=== PATIENT | female | born 2000 | race African-American/Black ===

== ENCOUNTER 2021-05-29 11:42 | Emergency (ER) | payer SELFPAY ==
[~2021-05-29] VITALS: Ht 152.4 cm; Wt 52.9 kg
[2021-05-29 12:00] VITALS: BP 131/74
[2021-05-29] MEDS ORDERED: IV NORMAL SALINE 1,000ML 1,000 ML IV ONE (12:00)
--- NOTE | 2021-05-29 12:00 | PHYS DOC ---
General Adult EDM: Chief Complaint: SEIZURE HPI: HPI: 21-year-old female presents via EMS after seizure at home. The patient has no official diagnosis of seizure disorder. She tells me that she was standing outside her house when she fell over. She does not remember what happened until later when EMS was there. He told EMS that the patient appeared to be having a seizure on the ground. She was postictal at the scene and when she first arrived in the ED. Patient denies any pain at this time. She states that the last time she had an episode like this was a couple years ago in high school. They told her she was just dehydrated. Patient is on no daily medications. She denies smoking, vaping, alcohol, or drug use. Denies . Review of Systems: Review of Systems: Constitutional: Denies fever or chills Eyes: Denies change in visual acuity HENT: Denies nasal congestion or sore throat Respiratory: Denies cough or shortness of breath Cardiovascular: Denies chest pain or edema GI: Denies abdominal pain, nausea, vomiting, bloody stools or diarrhea : Denies dysuria Musculoskeletal: Denies back pain or joint pain Integument: Denies rash Neurologic: Seizure. Denies headache, focal weakness or sensory changes Endocrine: Denies polyuria or polydipsia Lymphatic: Denies swollen glands Psychiatric: Denies depression or anxiety Current Medications: Current Meds: Current Medications Medications (Trade) Dose Ordered Sig/Ruma Start Time Stop Time Status Last Admin Dose Admin Levetiracetam 1000 mg/Sodium Chloride 100 ml @ 400 mls/hr 1X ONCE 05/29/21 12:00 05/29/21 12:14 Sodium Chloride 1,000 ml @ 1,000 mls/hr 1X ONCE 05/29/21 12:00 05/29/21 12:59 Allergies: Allergies: Allergies Coded Allergies Type Severity Reaction Last Updated Verified Unable to Assess 05/29/21 No Physical Exam: PE: Constitutional: Well developed, well nourished, no acute distress, non-toxic appearance. [] HENT: Normocephalic, atraumatic, bilateral external ears normal, oropharynx dry, no oral exudates, nose normal. [] Eyes: PERRLA, EOMI, conjunctiva normal, no discharge. [] Neck: Normal range of motion, no tenderness, supple, no stridor. [] Cardiovascular: Heart rate regular rhythm, no murmur [] Lungs & Thorax: Bilateral breath sounds clear to auscultation [] Abdomen: Bowel sounds normal, soft, no tenderness, no masses, no pulsatile masses. [] Skin: Warm, dry, no erythema, no rash. [] Back: No tenderness, no CVA tenderness. [] Extremities: No tenderness, no cyanosis, no clubbing, ROM intact, no edema. [] Neurologic: Alert and oriented X 3, normal motor function, normal sensory function, no focal deficits noted. [] Psychologic: Affect normal, judgement normal, mood normal. [] EKG: EKG: Sinus rhythm, rate 91, normal axis, no ST elevation or depression. [] Radiology/Procedures: Radiology/Procedures: [] Impressions: EXAM: CT head without contrast INDICATION: New onset seizure COMPARISON: None TECHNIQUE: Axial CT imaging through the head without intravenous contrast. Sagittal and coronal reformats were obtained. One or more of the following individualized dose reduction techniques were utilized for this examination: 1. Automated exposure control 2. Adjustment of the mA and/or kV according to patient size 3. Use of iterative reconstruction technique. FINDINGS: The ventricles and sulci are normal. Hicks-white matter differentiation is maintained. There is no intracranial hemorrhage, acute infarct, or mass lesion. The skull and scalp are intact. Paranasal sinuses and mastoid air cells are clear. Globes and orbits are intact. IMPRESSION: No acute intracranial abnormality. Electronically signed by: Linda Davis MD (05/29/2021 12:52 PM) [id number] DICTATED AND SIGNED BY: LINDA DAVIS MD DATE: 05/29/21 1251 CC: PORSCHE PALOMARES DO; PCP,NO ~ Exam Date: 05/29/2021 12:34 PM XR CHEST 1V Indication: Reason: seizure, SYNCOPE, "TIRED" / Spl. Instructions: / History: . FINDINGS/ IMPRESSION: The cardiac silhouette and pulmonary vasculature are within normal limits. There is no focal consolidation, pleural effusion or pneumothorax. The visualized osseous structures are intact. Electronically signed by: Micha Cao MD (05/29/2021 12:51 PM) [id number] DICTATED AND SIGNED BY: MICHA CAO MD DATE: 05/29/21 1251 CC: PORSCHE PALOMARES DO; PCP,NO ~ Heart Score: C/O Chest Pain: N/A Risk Factors: Risk Factors: DM, Current or recent (<one month) smoker, HTN, HLP, family history of CAD, obesity. Risk Scores: Score 0 - 3: 2.5% MACE over next 6 weeks - Discharge Home Score 4 - 6: 20.3% MACE over next 6 weeks - Admit for Clinical Observation Score 7 - 10: 72.7% MACE over next 6 weeks - Early Invasive Strategies Course & Med Decision Making: Course & Med Decision Making Pertinent Labs and Imaging studies reviewed. (See chart for details) The patient did appear postictal on arrival. She had some difficulty answering questions but this improved after several minutes. Patient's labs are unremarkable. Her head CT and chest x-ray are unremarkable. Her EKG is ne gative for acute findings. I did give the patient a liter normal saline and cover her with a gram of Keppra. I will not keep her on this medication as she has no official diagnosis of seizure. Her lactic acid was normal. I have given her a referral for neurology. She is stable for discharge at this time. [] Dragon Disclaimer: Dragon Disclaimer: This electronic medical record was generated, in whole or in part, using a voice recognition dictation system. Departure Departure: Impression: Primary Impression: Seizure-like activity Disposition: 01 HOME / SELF CARE / HOMELESS Condition: STABLE Referrals: PCP,NO (PCP) Patient Instructions: Seizure, Adult, [id number] Additional Instructions: Please make an appointment to follow-up with neurology. You can call Dr. Goff to make an appointment at: [phone]. PORSCHE PALOMARES DO May 29, 2021 11:59
[2021-05-29 12:14] LABS: BASO # 0.1 x10^3/uL (0.0-0.2); BASO % 1 % (0-3); EOS # 0.1 x10^3/uL (0.0-0.7); EOS % 1 % (0-3); HEMATOCRIT 35.2 % (36.0-47.0); HEMOGLOBIN 11.7 g/dL (12.0-15.5); LYMPH # 1.8 x10^3/uL (1.0-4.8); LYMPH % 26 % (24-48); MEAN CORPUSCULAR HEMOGLOBIN 29 pg (25-35); MEAN CORPUSCULAR HGB CONC 33 g/dL (31-37); MEAN CORPUSCULAR VOLUME 87 fL (79-100); MONO # 0.5 x10^3/uL (0.0-1.1); MONO % 7 % (0-9); NEUT # 4.4 x10^3uL (1.8-7.7); NEUT % 64 % (31-73); PLATELET COUNT 215 x10^3/uL (140-400); RED BLOOD COUNT 4.03 x10^6/uL (3.50-5.40); RED CELL DISTRIBUTION WIDTH 13.4 % (11.5-14.5); WHITE BLOOD COUNT 6.8 x10^3/uL (4.0-11.0)
[2021-05-29 12:17] LABS: CALCIUM 9.1 mg/dL (8.5-10.1); CREATININE 0.7 mg/dL (0.6-1.0); GFR 129.1; POTASSIUM 3.6 mmol/L (3.5-5.1)
[2021-05-29 12:23] LABS: ALBUMIN 3.5 g/dL (3.4-5.0); ALBUMIN/GLOBULIN RATIO 1.1 (1.0-1.7); TOTAL BILIRUBIN 0.8 mg/dL (0.2-1.0); TOTAL PROTEIN 6.8 g/dL (6.4-8.2)
--- NOTE | 2021-05-29 12:54 | RAD ---
Exam Date: 05/29/2021 12:34 PM XR CHEST 1V Indication: Reason: seizure, SYNCOPE, "TIRED" / Spl. Instructions: / History: . FINDINGS/ IMPRESSION: The cardiac silhouette and pulmonary vasculature are within normal limits. There is no focal consolidation, pleural effusion or pneumothorax. The visualized osseous structures are intact. Electronically signed by: Pedro Cao MD (05/29/2021 12:51 PM) [id number]
--- NOTE | 2021-05-29 12:54 | RAD ---
EXAM: CT head without contrast INDICATION: New onset seizure COMPARISON: None TECHNIQUE: Axial CT imaging through the head without intravenous contrast. Sagittal and coronal refor mats were obtained. One or more of the following individualized dose reduction techniques were utilized for this examinat ion: 1. Automated exposure control 2. Adjustment of the mA and/or kV according to patient size 3. Use of iterative reconstruction technique. FINDINGS: The ventricles and sulci are normal. Hicks-white matter differentiation is maintained. There is no int racranial hemorrhage, acute infarct, or mass lesion. The skull and scalp are intact. Paranasal sinuse s and mastoid air cells are clear. Globes and orbits are intact. IMPRESSION: No acute intracranial abnormality. Electronically signed by: Linda Davis MD (05/29/2021 12:52 PM) [id number]
[2021-05-29 14:42] LABS: BARBITURATES NEG (NEG); BENZODIAZEPINES NEG (NEG); CANNABINOIDS NEG (NEG); COCAINE NEG (NEG); METHADONE NEG (NEG); OPIATES NEG (NEG); PHENCYCLIDINE NEG (NEG)
[2021-05-29 14:44] LABS: AMPHETAMINE/METHAMPHETAMINE NEG (NEG)
[2021-05-29 14:48] LABS: COLOR,URINE YELLOW
[2021-05-29 14:49] LABS: BACTERIA,URINE FEW /HPF (0-FEW); CLARITY,URINE HAZY; GLUCOSE,URINE NEG (NEG); NITRITE,URINE NEG (NEG); RBC,URINE 0 /HPF (0-2); SQUAMOUS EPITHELIAL CELL,UR FEW /LPF; UROBILINOGEN,URINE 0.2 mg/dL (0.2 mg/dL); WBC,URINE OCC /HPF (0-4)
--- NOTE | 2021-05-29 20:28 | EKG ---
[address] [address] Test Date: 2021-05-29 Test Time: 11:45:19 Pat Name: BHUMIKA LAM Department: Room: Gender: F Bilingual Sales Representative: : [id number] Requested By: PORSCHE PALOMARES Order Number: [id number] Reading MD: Measurements Intervals Reading Rate: 91 P: 43 WA: 126 QRS: 41 QRSD: 80 T: 26 QT: 350 QTc: 438 Interpretive Statements SINUS RHYTHM QRS(T) CONTOUR ABNORMALITY CONSIDER ANTEROSEPTAL MYOCARDIAL DAMAGE POSSIBLY ABNORMAL ECG RI6.01 No previous ECG available for comparison
== END 2021-05-29 14:38 | disposition home or self-care (01) ==
LOC: ER 11:42
DX: G40.909 Epilepsy, unspecified, not intractable, without status epilepticus (principal)
CPT/HCPCS: 36415; 70450; 71045; 80053; 80307; 81001; 83605; 84484; 85025; 93005; 96361; 96374; 99285; J1953; J7030